=== PATIENT | male | born 1980 ===

== ENCOUNTER 2020-03-27 16:45 | Inpatient (IN) | payer BC, SELFPAY ==
[~2020-03-27 16:45] MED LIST: Iopamidol-370 76% 500 ML 1 ML ONE
[2020-03-27] MEDS ORDERED: Acetaminophen 500 MG TAB ONE (17:34)
[2020-03-27] MEDS ORDERED: Azithromycin 500 MG VIAL ONE (17:35)
[2020-03-27] MEDS ORDERED: Dexamethasone 4 mg/ml Vial ONE (17:36)
[2020-03-27 17:43] LABS: #Basophils 0.1 thou/uL (0.0-0.2); #Lymphocytes 1.4 thou/uL (1.20-3.40); #Monocytes 0.9 thou/uL (0.11-0.59); #Neutrophils 10.9 thou/uL (1.40-6.50); %Basophils 0.5 % (0.0-1.0); %Eosinophils 0.2 % (0.0-10.0); %Lymphocytes 10.6 % (21.0-51.0); %Monocytes 6.6 % (0.0-10.0); %Neutrophils 82.1 % (42.0-75.0); Hemoglobin 16.4 g/dL (14.0-18.0); Mean Corpuscular HGB CONC 34.3 g/dL (32.0-36.0); Mean Corpuscular Volume 87.6 fL (78.0-98.0); Mean Platelet Volume 7.4 fL (7.4-10.4); Platelet Count 285 thou/uL (130-400); RBC Distribution Width 12.3 % (11.5-14.5); Red Blood Cell (RBC) Count 5.47 mill/uL (4.70-6.10); White Blood Cell (WBC) Count 13.3 thou/uL (4.8-10.8)
[2020-03-27 18:02] LABS: ALT (SGPT) 26 U/L (8-55); AST (SGOT) 21 U/L (5-34); Albumin 4.3 g/dL (3.5-5.0); Alkaline Phosphatase 101 U/L (40-110); Anion Gap 17 mmol/L (10-20); BUN (Urea Nitrogen) 10 mg/dL (8.9-20.6); Bilirubin, Total 1.4 mg/dL (0.2-1.2); CK (CPK) 84 U/L (30-200); Calc. Creatinine Clearance 0 mL/min (70-130); Calcium 9.2 mg/dL (7.8-10.44); Carbon Dioxide 24 mmol/L (22-29); Chloride 100 mmol/L (98-107); Estimated GFR-MDRD Greater than 90; Globulin 2.8 g/dL (2.4-3.5); Glucose 102 mg/dL (70-105); Potassium 3.9 mmol/L (3.5-5.1); Protein, Total 7.1 g/dL (6.0-8.3); Sodium 137 mmol/L (136-145)
--- NOTE | 2020-03-27 18:06 | RAD ---
RADIOGRAPH CHEST 1 VIEW: DATE: 03/27/2020 HISTORY: 40-year-old male with chest pain and dyspnea FINDINGS: Limited study due to hypoinflated lungs. Questionable left perihilar density versus normal blood vess els. There are no large consolidations, pulmonary edema, pneumothorax, or cardiomegaly. The lateral costophrenic angles are sharp. IMPRESSION: No convincing evidence of acute cardiopulmonary disease.
--- NOTE | 2020-03-27 19:14 | CT ---
CT ANGIOGRAM THORAX WITH CONTRAST: (CTA pulmonary angiogram) DATE: 03/27/2020 HISTORY: 40-year-old male with dyspnea, tachypnea, TECHNIQUE: IV injection of iodinated contrast. Scan acquisition timing attempted to coincide with iodinated contrast bolus reaching maximal density in pulmonary arteries. 3-D MIP reconstructions. FINDINGS: Slightly suboptimal contrast opacification of pulmonary arteries and their branches. Filling defect in a branch of one basilar segment left lower lobe pulmonary artery is probably part o f the streak artifact that is present in the images. No definite pulmonary thromboembolism identified. No thoracic aortic aneurysm or dissection. Hypoinflated lungs. Somewhat elevated right hemidiaphragm. Small to moderate size region of consolidation abutting the posterior and posteromedial right pleural surface, at the right lower lobe. Very small adjacent right dependent pleural effusion. The rest of the lungs are clear. Trachea and bilateral mainstem bronchi are patent and clear. No mediastinal or hilar lymphadenopathy. No left pleural effusion, pericardial effusion, or pneumothorax. Diffusely low hepatic attenuation co nsistent with fatty liver. IMPRESSION: 1) no conclusive evidence of pulmonary thromboembolism. Slightly suboptimal study. 2) region of right lower lobe consolidation: Atelectasis versus pneumonia. 3) hepatic steatosis 4) hypoinflated lungs, and mildly elevated right hemidiaphragm.
[2020-03-27] MEDS ORDERED: cefTRIAXone\\ROCEPHIN 2 GM VIAL ONE (19:41)
[2020-03-27] MEDS ORDERED: HYDROcodone/Acetaminophen 5/325 mg Tablet PO PRN (19:43)
[2020-03-27] MEDS ORDERED: Acetaminophen 325 MG TAB PO PRN (19:43)
--- NOTE | 2020-03-27 21:57 | PDOC.BPN ---
- Brief Progress Note [id number] dictated
[2020-03-27 22:05] LABS: SARS-CoV-2 NAA Rapid Test Not Detected (NotDetected)
[2020-03-27] MEDS: Sodium Chloride 0.9% 1,000 ML IV SCH (22:30)
[2020-03-27] MEDS: cefTRIAXone\\ROCEPHIN 1 GM in Sodium Chloride 0.9% 100 ML IVPB SCH (23:33)
--- NOTE | 2020-03-28 01:40 | HP ---
CHIEF CONCERN: Chest pain. HISTORY OF PRESENT ILLNESS: Mr. Figueroa is a 40-year-old male, with no significant past medical history, presents to the emergency room with sharp chest pain radiating to his neck, which was worse with deep inspiration. Patient denies any drug use, [id number] supplements, or CAD risk factors. In the emergency room, patient was tachycardic with heart rate 120s. Temperature 100.1. Oxygen saturation is 97% on 2 L/minute nasal cannula. Patient had CT of the chest, which showed right lower lobe consolidation. No pulmonary embolism. CRP was elevated at 5.4. Septic workup done in the ED. Started on IV antibiotics. Patient has been admitted to hospital for further management. PAST MEDICAL HISTORY: None. PAST SURGICAL HISTORY: None. SOCIAL HISTORY: Chews tobacco. Denies alcohol drinking or drug abuse. FAMILY HISTORY: Reviewed, noncontributory. ALLERGIES: NO KNOWN ALLERGIES. CURRENT MEDICATIONS: None. REVIEW OF SYSTEMS: Review of 14 systems negative, except what is mentioned in history of present illness. PHYSICAL EXAMINATION: GENERAL: Patient is awake, alert, in moderate distress. VITAL SIGNS: Blood pressure 121/91, heart rate is 110, respiratory rate is 24, and oxygen saturation is 97% on 2 L/minute nasal cannula. HEAD AND NECK: Normocephalic, atraumatic. Neck is supple. CHEST: Decreased air entry, right base. HEART: S1, S2. Regular, tachycardic. ABDOMEN: Soft, nontender. Bowel sounds present. NEUROLOGIC: Awake, alert, and oriented x3. PSYCH: Normal mood. EXTREMITIES: No clubbing or cyanosis. LABORATORY DATA: WBC count of 13.3. Elevated CRP, elevated ESR. CT of the chest, as mentioned above in history of present illness. ASSESSMENT: 1. Pneumonia, community acquired. 2. Chest pain, pleuritic in nature. 3. Tachycardia. PLAN: 1. Admit. 2. Septic workup done in the ED. 3. IV antibiotics. Continue with ceftriaxone and azithromycin. 4. IV fluid hydration. 5. DVT prophylaxis as appropriate. 6. Expected length of stay, at least 1 midnight, if patient stable and shows significant clinical improvement. Job ID: [id number]
[2020-03-28 05:24] LABS: Anion Gap 15 mmol/L (10-20); BUN (Urea Nitrogen) 10 mg/dL (8.9-20.6); Calc. Creatinine Clearance 0 mL/min (70-130); Calcium 9.2 mg/dL (7.8-10.44); Carbon Dioxide 21 mmol/L (22-29); Chloride 104 mmol/L (98-107); Estimated GFR-MDRD Greater than 90; Glucose 167 mg/dL (70-105); Potassium 4.2 mmol/L (3.5-5.1); Sodium 136 mmol/L (136-145)
[2020-03-28] MEDS: Sodium Chloride 0.9% 1,000 ML IV SCH ×2 (05:35→17:45)
[2020-03-28 05:36] LABS: Band 15 % (5-11); Hemoglobin 15.2 g/dL (14.0-18.0); Lymphocytes 9 % (21-51); MDiff Complete? YES; Mean Corpuscular Hemoglobin 29.2 pg (27.0-31.0); Mean Corpuscular Volume 88.6 fL (78.0-98.0); Mean Platelet Volume 7.4 fL (7.4-10.4); Monocytes 4 % (0-10); Neutrophil 72 % (42-75); Platelet Count 295 thou/uL (130-400); RBC Distribution Width 12.1 % (11.5-14.5); Red Blood Cell (RBC) Count 5.22 mill/uL (4.70-6.10); White Blood Cell (WBC) Count 13.8 thou/uL (4.8-10.8)
[2020-03-28 15:08] LABS: SARS-CoV-2 IgG Ab Non-Reactive (NonReactive); SARS-CoV-2 IgG Index 0.02 S/CO (< 1.40)
[2020-03-28 16:30] LABS: SARS-CoV-2 MS2 Positive; SARS-CoV-2 N Gene Negative; SARS-CoV-2 S Gene Negative; SARS-CoV-2 by NAA Not Detected (NotDetected); SARS-CoV-2 orf1ab Negative
--- NOTE | 2020-03-28 17:25 | PDOC.HOSPP ---
- Subjective Encounter Date: 03/28/20 Encounter Time: 13:00 Subjective: no cough or fever now feels better - Objective Vital Signs & Weight: Vital Signs (12 hours) Pulse Resp BP Pulse Ox 03/28/20 13:27 88 18 96 03/28/20 10:40 97 16 136/90 96 Weight Weight 289 lb 14.526 oz Result Diagrams: 03/28/20 04:27 03/28/20 04:27 Hospitalist ROS - Medication Medications: Active Medications Generic Name Dose Route Start Last Admin Trade Name Freq PRN Reason Stop Dose Admin Albuterol/Ipratropium 3 ml 03/28/20 13:00 03/28/20 13:27 Ipratropium/Albuterol Sulfate 3 Ml Neb NEB 3 ml [id number] CLARENCE Administration Sodium Chloride 1,000 mls @ 100 mls/hr 03/27/20 19:45 03/28/20 05:35 Normal Saline 0.9% IV 1,000 mls .Q10H CLARENCE Administration Ceftriaxone Sodium 1 gm/ 100 mls @ 200 mls/hr 03/27/20 20:00 03/27/20 23:33 Sodium Chloride IVPB Not Given Q24HR CLARENCE Sodium Chloride 10 ml 03/28/20 09:00 03/28/20 07:40 Flush - Normal Saline 10 Ml Syringe IVF Not Given Q12HR CLARENCE - Exam General Appearance: awake alert Eye: PERRL, anicteric sclera ENT: no oropharyngeal lesions, moist mucosa Neck: supple, no JVD Heart: RRR, no murmur Respiratory: no wheezes, no rales Gastrointestinal: soft, non-tender, non-distended, normal bowel sounds Extremities: no cyanosis, no edema Neurological: cranial nerve grossly intact, no focal deficits Psychiatric: normal affect, A&O x 3 Hosp A/P (1) CAP (community acquired pneumonia) Code(s): J18.9 - PNEUMONIA, UNSPECIFIED ORGANISM Status: Acute Qualifiers: Laterality: right (2) Obesity Code(s): E66.9 - OBESITY, UNSPECIFIED Status: Chronic (3) CATARINO (obstructive sleep apnea) Code(s): G47.33 - OBSTRUCTIVE SLEEP APNEA (ADULT) (PEDIATRIC) Status: Suspected - Plan covid 19 pcr x2 is -ve is on ceftriaxone and zithromax may dc in am if stable has no funding for sleep studies, may get autopap online hemostable
[2020-03-28] MEDS ORDERED: Azithromycin 500 MG in Sodium Chloride 0.9% 250 ML 250 ML IVPB SCH (18:00)
[2020-03-28] MEDS: cefTRIAXone\\ROCEPHIN 1 GM in Sodium Chloride 0.9% 100 ML IVPB SCH (20:38)
[2020-03-29 07:12] VITALS: BP 118/79; TEMP 97.5
[2020-03-29] MEDS: Sodium Chloride 0.9% 1,000 ML IV SCH ×2 (07:57→14:14)
[2020-03-29] MEDS ORDERED: Zolpidem Tartrate 5 MG TAB PO PRN (08:42)
[2020-03-29] MEDS ORDERED: Loratadine 10 MG TAB PO PRN (08:42)
[2020-03-29] MEDS ORDERED: hydrALAZINE 20 MG/ML VIAL SLOW IVP PRN (08:42)
[2020-03-29] MEDS ORDERED: Senokot S 8.6-50 MG TAB PO PRN (08:42)
[2020-03-29] MEDS ORDERED: Diabetic Tussin 200 MG/10 ML UDCUP PO PRN (08:42)
[2020-03-29] MEDS ORDERED: Calcium Carbonate 500 MG ChewTAB PO PRN (08:42)
[2020-03-29] MEDS ORDERED: Loperamide HCl 2 MG CAP PO PRN (08:42)
[2020-03-29] MEDS ORDERED: Metoclopramide HCl 10 MG/2 ML VIAL IVP PRN (08:42)
[2020-03-29] MEDS ORDERED: Sodium Chloride 0.65% Nasal 44 ML BOT EA NARE PRN (08:42)
[2020-03-29] MEDS ORDERED: Cepastat Lozenges 1 LOZ PO PRN (08:42)
[2020-03-29] MEDS ORDERED: FLU VACC QS2020-21(6MOS UP)/PF 60 MCG/0.5 ML SYRINGE IM ONE (09:00)
--- NOTE | 2020-03-29 11:59 | PDOC.DS.DS ---
Provider - Provider Date of Admission: 03/27/20 19:25 Date of Discharge: 03/29/20 Admitting Provider: Carey Martin MD Primary Care Physician: NO PCP PROVIDER Course - Hospital Course Hospital Course: 40-year-old male with no past medical history who came to emergency room with chest pain, which was pleuritic in nature, in the emergency room he was tachycardic and febrile, his CT chest showed right lower lobe consolidation, no pulmonary embolism, his COVID-19 test came back negative x2, patient was treated with Rocephin and azithromycin, patient became afebrile and symptomatically completely normal, we have changed to Omnicef on discharge and patient is medi matias stable for discharge today. He remained afebrile and hemodynamically stable. Resuscitation Status: 03/27/20 19:43 Resuscitation Status Routine Resuscitation Status: FULL: Full Resuscitation - Labs Lab Results: 03/28/20 04:27 03/28/20 04:27 Abnormal Lab Results - Last 48 hrs 03/27/20 17:15: WBC 13.3 H, Neutrophils % 82.1 H, Lymphocytes % 10.6 L, Neutrophils # 10.9 H, Monocytes # 0.9 H 03/27/20 17:15: Total Bilirubin 1.4 H 03/27/20 17:37: C-Reactive Protein 5.45 H 03/27/20 17:37: ESR Westergren 27 H 03/28/20 04:27: Carbon Dioxide 21 L 03/28/20 04:27: WBC 13.8 H, Band Neuts % (Manual) 15 H, Lymphocytes % (Manual) 9 L Microbiology - Entire Visit 03/27/20 18:28 Venous blood - Right Arm Blood Culture - Preliminary Specimen has been received and culture in progress. No Growth to date. 03/27/20 17:37 Venous blood - Left Arm Blood Culture - Preliminary Specimen has been received and culture in progress. No Growth to date. - Diagnostic Interpretation Other Status: image reviewed by me Additional comments: Chest x-ray showed no acute cardiopulmonary process CT angiography showed no evidence of pulmonary embolism, patient was found with right lower lobe pneumonia, fatty liver - Physical Exam Vitals: Vital Signs (12 hours) Temp Pulse Resp BP BP Pulse Ox 03/29/20 07:16 97 16 96 03/29/20 07:11 97.5 F L 87 20 118/79 96 03/29/20 04:00 98.2 F 91 20 115/75 94 L 03/29/20 00:45 107 H 16 03/29/20 00:00 98.2 F 107 H 20 125/78 93 L Weight Weight 289 lb 14.526 oz Physical Exam: The patient was seen and examined on the day of discharge. General patient is currently alert and awake no acute distress Head normocephalic atraumatic Neck supple no JVD no meningeal signs of irritation Lungs clear to auscultation without any rhonchi rales Cardiac S1-S2 regular, no murmur no gallop no rub Abdomen soft, bowel sound present, nontender nondistended no organomegaly no mass Extremity no edema Neurologic nonfocal examination Problem - Problem (1) CAP (community acquired pneumonia) Code(s): J18.9 - PNEUMONIA, UNSPECIFIED ORGANISM Status: Acute Qualifiers: Laterality: right (2) Hepatic steatosis Code(s): K76.0 - FATTY (CHANGE OF) LIVER, NOT ELSEWHERE CLASSIFIED Status: Chronic (3) Obesity Code(s): E66.9 - OBESITY, UNSPECIFIED Status: Chronic Qualifiers: Body mass index: BMI 40.0-44.9 (4) CATARINO (obstructive sleep apnea) Code(s): G47.33 - OBSTRUCTIVE SLEEP APNEA (ADULT) (PEDIATRIC) Status: Suspected Plan - Discharge Medications Prescriptions: Cefdinir 300 mg PO Q12HR #14 capsule Home Medications: Medication Instructions Recorded Confirmed Type Cefdinir 300 mg PO Q12HR #14 capsule 03/29/20 Rx Allergies: No Known Allergies Allergy (Unverified 03/27/20 19:53) - Discharge Instructions Activity:: Activity as Tolerated Nourishment:: Heart Healthy Diet Therapies:: Not Applicable Equipment/Supplies:: Not Applicable IV Therapy:: Not Applicable - Follow up Plan Referrals: PROVIDER,NO PCP [Primary Care Provider] - Disposition: HOME Quality - Care Measures CORE MEASURES:: N/A
--- NOTE | 2020-03-29 15:35 | EKG ---
Test Reason : CARDIAC WORKUP Blood Pressure : / mmHG Vent. Rate : 111 BPM Atrial Rate : 111 BPM P-R Int : 150 ms QRS Dur : 116 ms QT Int : 344 ms P-R-T Axes : 047 056 015 degrees QTc Int : 467 ms Sinus tachycardia Otherwise normal ECG Confirmed by PAOLO GRANADO, ELICEO Le ([id number]), desk editor COLLEEN MELENDEZ ([id number]) on 03/29/2020 3:34:50 PM Referred By: PAOLO Confirmed By:ELICEO BOONE MD
== END 2020-03-29 12:12 | disposition home or self-care (01) | DRG 194 ==
LOC: ERS 16:45 → ERHOLD 19:25 → T4-B 03-28 11:06
PROVIDERS: ADMIT Internal Medicine; ATTEND Internal Medicine
DX: J18.9 Pneumonia, unspecified organism (principal); Z68.41 Body mass index [BMI] 40.0-44.9, adult; Z20.828 Contact with and (suspected) exposure to other viral communicable diseases; K76.0 Fatty (change of) liver, not elsewhere classified; E66.9 Obesity, unspecified; G47.33 Obstructive sleep apnea (adult) (pediatric); F17.210 Nicotine dependence, cigarettes, uncomplicated
CPT/HCPCS: 36415; 71045; 71275; 80048; 80053; 82550; 83605; 84484; 85007; 85025; 85027; 85379; 85652; 86140; 86769; 87040; 87635; 93005; 94640; 94760; 96365; 96367; 96375; J0456; J0696; J1100; J3490; J7050; J7620; Q9967; U0002; U0003